=== PATIENT | male | born 1940 | race Caucasian/White ===

== ENCOUNTER → 2017-04-28 | Outpatient (CLI) | payer MEDICARE ==
[~2017-04-28] MED LIST: ACET-2043 PO; ALBU8.5H IH; AMOX-559 PO; ASPI-757 PO; ASPI81TA94 PO; BENZ200C15 PO; CIPR-344 PO; DICL100G39 TOP; DULO30CA6 PO; ERGO500037 PO; ESCI20TA8 PO; HYDR-4305 PO; HYDR-6016 PO; LISI-362 PO; MELO-207 PO; METO100T20 PO; METR-160 PO; MIRT-22 PO; PER PO; PROM-110 PO; ROSU20TA23 PO; ZOLP-350 PO
--- NOTE | 2017-04-28 14:10 | RADIOLOGY IMAGING REPORT ---
FACILITY: [facility] PATIENT NAME: Ravi Kim : 1940 MR: [id number] V: [id number] EXAM DATE: ORDERING PHYSICIAN: JAMES ESCALONA TECHNOLOGIST: Location: [facility] Patient: Ravi Kim : 1940 Visit/Account:[id number] Date of Sevice: 04/28/2017 CHEST PA AND LAT INDICATION: Cough COMPARISON: None available FINDINGS: The cardiac silhouette is normal in size. No pneumothorax. Clear lungs. Intact sternot bill wires. Convexity right thoracolumbar scoliosis. No pleural fluid. Coronary artery bypass posts urgical change noted. IMPRESSION: No acute finding. Report Dictated By: Gregg Frank MD at 04/28/2017 2:04 PM Report E-Signed By: Gregg Frank MD at 04/28/2017 2:06 PM WSN:[id number]
== END ==
LOC: RAD 13:30
PROVIDERS: ATTEND Nurse Practitioner Family
DX: R05 Cough (principal); J06.9 Acute upper respiratory infection, unspecified
CPT/HCPCS: 71046

== ENCOUNTER → 2017-05-04 | Outpatient (CLI) | payer MEDICARE ==
[2017-05-04 14:13] LABS: PLATELET COUNT, AUTOMATED 229 K/uL (150-450)
== END ==
LOC: LAB 13:47
PROVIDERS: ATTEND Family Medicine
DX: R53.1 Weakness (principal); R06.02 Shortness of breath
CPT/HCPCS: 36415; 82040; 82247; 82310; 82374; 82435; 82565; 82947; 84075; 84132; 84155; 84295; 84443; 84450; 84460; 84520; 85025

== ENCOUNTER → 2017-06-22 | Outpatient (CLI) | payer MEDICARE ==
[~2017-06-22] MED LIST changes: +HYDR-385 PO
== END ==
LOC: RESP 19:50
PROVIDERS: ATTEND Family Medicine
DX: G47.33 Obstructive sleep apnea (adult) (pediatric) (principal); G47.37 Central sleep apnea in conditions classified elsewhere; G47.61 Periodic limb movement disorder; G47.36 Sleep related hypoventilation in conditions classified elsewhere; E66.3 Overweight

== ENCOUNTER → 2017-07-12 | Outpatient (CLI) | payer MEDICARE ==
[~2017-07-12] MED LIST changes: +TAMS0.4C25 PO
== END ==
LOC: LAB 10:16
PROVIDERS: ATTEND Nurse Practitioner Primary Care
DX: R39.15 Urgency of urination (principal)
CPT/HCPCS: 36415; 81001; 84153

== ENCOUNTER → 2018-04-13 | Outpatient (CLI) | payer MEDICARE, OTHER ==
[~2018-04-13] MED LIST changes: +AZIT-1 PO; +CHOL100058 PO; +CODE473L3 PO; +FLU180SY11 IM; -HYDR-4305 PO; +HYDR-627 PO; -METR-160 PO; +METR500T15 PO; +MIRT7.5T2 PO; +OXYGENHOME INH; +PNEU0.5D3 IM; -ROSU20TA23 PO; +ROSU20TA24 PO
== END ==
LOC: RESP 20:02
PROVIDERS: ATTEND Family Medicine
DX: Z02.9 Encounter for administrative examinations, unspecified (principal)

== ENCOUNTER → 2018-08-30 | Outpatient (CLI) | payer MEDICARE, OTHER ==
[2018-08-30 16:22] LABS: PLATELET COUNT, AUTOMATED 172 K/uL (150-450)
== END ==
LOC: LAB 16:02
PROVIDERS: ATTEND Family Medicine
DX: I10 Essential (primary) hypertension (principal); E55.9 Vitamin D deficiency, unspecified
CPT/HCPCS: 36415; 82040; 82247; 82306; 82310; 82374; 82435; 82565; 82947; 84075; 84132; 84155; 84295; 84450; 84460; 84520; 85025